=== PATIENT | female | born 1970 | race Caucasian/White ===

== ENCOUNTER → 2021-03-26 | Outpatient (CLI) | payer OTHER, BC ==
[~2021-03-26] MED LIST: COLACE 100MG C100 MG PO; DIFLUCAN100 MG PO; DOCUSATE SODIU100 MG PO; GLUCOPHAGE1000 MG PO; HAIR, SKIN & N1 EACH PO; IBU600 MG PO; IBUPROFEN200 M1 PO; JARDIANCE25 MG PO; LEVOTHYROXINE125 MC1 PO; NAPROXEN250 MG PO; NORCO 5-325 TA1 EACH PO; NORETHINDRONE AC5 MG PO; PROTONIX40 MG PO; ROXICODONE TAB 55 MG PO; SYNTHROID125 MCG PO; TRULICITY1.5 MG/0.5 INH; TRULICITY1.5 MG/0.5 SQ; WELLBUTRIN SR150 M1 PO
[2021-03-26 10:46] LABS: HEMOGLOBIN 16.7 gm/dl (12.3-15.3); RED BLOOD COUNT 4.78 M/UL (4.00-5.10); WHITE BLOOD COUNT 7.2 K/UL (4.5-11.0)
[2021-03-26 10:52] LABS: BUN/CREATININE RATIO 19 (0-10)
== END ==
LOC: OPSV2 09:22
PROVIDERS: Anesthesiology; Obstetrics & Gynecology
DX: Z01.818 Encounter for other preprocedural examination (principal); R10.2 Pelvic and perineal pain; R94.31 Abnormal electrocardiogram [ECG] [EKG]
CPT/HCPCS: 36415; 71046; 80048; 81001; 85025; 93005

== ENCOUNTER 2021-04-01 07:15 | Day surgery (SDC) | payer OTHER, BC ==
[~2021-04-01] VITALS: Ht 162.6 cm; Wt 77.1 kg
[~2021-04-01 07:15] MED LIST changes: -DOCUSATE SODIU100 MG PO; -NAPROXEN250 MG PO; -ROXICODONE TAB 55 MG PO
[2021-04-01] MEDS ORDERED: ROXICODONE TAB 55 MG PO (13:38)
[2021-04-01] MEDS ORDERED: NAPROXEN250 MG PO (13:38)
[2021-04-01] MEDS ORDERED: DOCUSATE SODIU100 MG PO (13:38)
== END 2021-04-01 18:42 | disposition home or self-care (01) ==
LOC: OR 07:15 → OB 13:30 → OR 18:42
DX: N80.0 Endometriosis of uterus (principal); N72 Inflammatory disease of cervix uteri; Q50.4 Embryonic cyst of fallopian tube; E11.9 Type 2 diabetes mellitus without complications; E03.9 Hypothyroidism, unspecified; E78.5 Hyperlipidemia, unspecified; Z79.4 Long term (current) use of insulin; Z79.1 Long term (current) use of non-steroidal anti-inflammatories (NSAID); Z79.899 Other long term (current) drug therapy; Z20.822 Contact with and (suspected) exposure to COVID-19
CPT/HCPCS: 36415; 82962; 84702; J0690; J1100; J1170; J1885; J2001; J2250; J2405; J2704; J2710; J2795; J3010; J7030; J7120; U0002